=== PATIENT | male | born 1950 | race Caucasian/White ===

== ENCOUNTER 2021-07-30 17:12 | Emergency (ER) | payer MEDICARE ==
[~2021-07-30] VITALS: Ht 172.7 cm; Wt 76.2 kg
[2021-07-30] MEDS ORDERED: MUPIROCIN22 GM TOP (17:25)
[2021-07-30] MEDS ORDERED: CLINDAMYCIN HC300 MG PO (17:25)
== END 2021-07-30 17:40 | disposition home or self-care (01) ==
LOC: FSED 17:25
DX: L03.311 Cellulitis of abdominal wall (principal); L25.3 Unspecified contact dermatitis due to other chemical products; I25.10 Atherosclerotic heart disease of native coronary artery without angina pectoris; Z95.1 Presence of aortocoronary bypass graft
CPT/HCPCS: 99283